=== PATIENT | female | born 1960 | race Asian ===

== ENCOUNTER 2025-03-10 14:51 | Inpatient (IN) | payer SELFPAY ==
[~2025-03-10] VITALS: Ht 157.5 cm; Wt 47.9 kg
[2025-03-10 15:32] LABS: Urine Bacteria None Seen /hpf (None Seen)
--- NOTE | 2025-03-10 15:34 | ED.PDOC ---
GI ASSESSMENT HPI Comments 64 y/o F, with no prior medical history presents to the ED for CC of abdominal pain. Patient states, she has been experiencing diffuse abdominal pain with associated diarrhea x3days. Patient reports, pain to be severe waking her up multiple times during the night. Patient denies nausea, vomiting, fever, chills, dysuria, or melena. No other symptoms or modifying factors present at this time. 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 Family History Family History: Family hx of DM, Family hx of Cancer Social History Smoker: Non-Smoker Alcohol: Denies ETOH Use Drugs: Denies Drug Use Lives In: Home Constitutional: denies: chills, diaphoresis, fatigue, fever, malaise, sweats, weakness, others EENTM: denies: blurred vision, double vision, ear bleeding, ear discharge, ear drainage, ear pain, ear ringing, eye pain, eye redness, hearing loss, mouth pain, mouth swelling, nasal discharge, nose bleeding, nose congestion, nose pain, photophobia, tearing, throat pain, throat swelling, voice changes, others Respiratory: denies: cough, hemoptysis, orthopnea, SOB at rest, shortness of breath, SOB with excertion, stridor, wheezing, others Cardiovascular: denies: chest pain, dizzy spells, diaphoresis, Dyspnea on exertion, edema, irregular heart beat, left arm pain, lightheadedness, palpitations, PND, syncope, others Gastrointestinal: reports: abdominal pain, diarrhea; denies: abdomen distended, blood streaked bowels, constipated, dysphagia, difficulty swallowing, hematemesis, melena, nausea, poor appetite, poor fluid intake, rectal bleeding, rectal pain, vomiting, others Genitourinary: denies: abnormal vagina bleeding, burning, dyspareunia, dysuria, flank pain, frequency, hematuria, incontinence, pain, , vagina discharge, urgency, others Neurological: denies: dizziness, fainting, headache, left sided numbness, left sided weakness, numbness, paresthesia, pre-existing deficit, right sided numbness, right sided weakness, seizure, speech problems, tingling, tremors, weakness, others Musculoskeletal: denies: back pain, gout, joint pain, joint swelling, muscle pain, muscle stiffness, neck pain, others Integumetry: denies: bruises, change in color, change in hair/nails, dryness, laceration, lesions, lumps, rash, wounds, others Allergic/Immunocompromised: denies: Difficulty Healing, Frequent Infections, Hives, Itching, others Hematologic/Lymphatic: denies: anemia, blood clots, easy bleeding, easy bruising, swollen glands, others Endocrine: denies: excessive hunger, excessive sweating, excessive thirst, excessive urination, flushing, intolerance to cold, intolerance to heat, unexplained weight gain, unexplained weight loss, others Psychiatric: denies: anxiety, bipolar disorder, depression, hopeless, panic disorder, schizophrenia, sleepless, suicidal, others All Other Systems: Reviewed and Negative Physical Exam General Appearance: Moderate Distress HEENT: Normal ENT Inspection, Pharynx Normal, TMs Normal Neck: Full Range of Motion, Non-Tender, Normal, Normal Inspection Respiratory: Chest Non-Tender, Lungs Clear, No Accessory Muscle Use, No Respiratory Distress, Normal Breath Sounds Cardiovascular: No Edema, No JVD, No Murmur, No Gallop, Normal Peripheral Pulses, Regular Rate/Rhythm Breast Exam: Deferred Gastrointestinal: No Organomegaly, Non Tender, No Pulsatile Mass, Normal Bowel Sounds, Soft Genitalia: Deferred Pelvic: Deferred Rectal: Deferred Extremities: No calf tenderness, Normal capillary refill, Normal inspection, Normal range of motion, Non-tender, No pedal edema Musculoskeletal : Apperance: Normal Neurologic: Alert, 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 Was a procedure done?: No GI differential Dx Differential Diagnosis: Gastritis/PUD, Gastroenteritis, Electrolyte Imbalance, Food Poisoning, Bacterial, Viral X-Ray, Labs, Meds, VS Vital Signs Date Time Temp Pulse Resp B/P (MAP) Pulse Ox O2 Delivery O2 Flow Rate FiO2 03/10/25 15:15 98.1 95 18 149/96 (113) 95 98.1 Lab Test 03/10/25 15:34 03/10/25 15:10 Range/Units White Blood Count 5.7 4.4-10.8 10^3/uL Red Blood Count 4.89 4.0-5.20 10^6/uL Hemoglobin 14.7 12.2-16.2 g/dL Hematocrit 42.5 36.0-46.0 % Mean Corpuscular Volume 87.0 80.0-100.0 fL Mean Corpuscular Hemoglobin 30.0 28.0-32.0 pg Mean Corpuscular Hemoglobin Concent 34.5 32.0-36.0 g/dL Red Cell Distribution Width 12.5 11.8-14.3 % Platelet Count 228 140-450 10^3/uL Mean Platelet Volume 6.8 L 6.9-10.8 fL Neutrophils (%) (Auto) 58.4 37.0-80.0 % Lymphocytes (%) (Auto) 26.1 10.0-50.0 % Monocytes (%) (Auto) 11.6 0.0-12.0 % Eosinophils (%) (Auto) 3.3 0.0-7.0 % Basophils (%) (Auto) 0.6 0.0-2.0 % Neutrophils # (Auto) 3.4 1.6-8.6 10 ^3/uL Lymphocytes # (Auto) 1.5 0.4-5.4 10 ^3/uL Monocytes # (Auto) 0.7 0-1.3 10 ^3/uL Eosinophils # (Auto) 0.2 0-0.8 10 ^3/uL Basophils # (Auto) 0 0-0.2 10 ^3/uL Nucleated Red Blood Cells 0.1 % Sodium Level 140 136-145 mmol/L Potassium Level 3.2 L 3.5-5.1 mmol/L Chloride Level 105 98-107 mmol/L Carbon Dioxide Level 23 20-31 mmol/L Anion Gap 12 5-15 Blood Urea Nitrogen 6 L 9-23 mg/dL Creatinine 0.80 0.550-1.02 mg/dL Glomerular Filtration Rate Calc 83 >90 mL/min BUN/Creatinine Ratio 7.5 L 10.0-20.0 Serum Glucose 135 H 74-106 mg/dL Calcium Level 8.8 8.7-10.4 mg/dL Total Bilirubin 0.4 0.2-1.0 mg/dL Aspartate Amino Transferase (AST) 45 H <34 U/L Alanine Aminotransferase (ALT) 30 7-40 U/L Alkaline Phosphatase 183 H 46-116 U/L Total Protein 7.8 5.7-8.2 g/dL Albumin 4.3 3.2-4.8 g/dL Lipase 31 12-53 U/L Urine Color Colorless Yellow Urine Clarity Clear Clear Urine pH 6.0 5.0-9.0 Urine Specific [place] 1.002 1.001-1.035 Urine Protein Negative Negative Urine Ketones Negative Negative Urine Blood Negative Negative /uL Urine Nitrite Negative Negative Urine Bilirubin Negative Negative Urine Urobilinogen Normal Negative mg/dL Urine Leukocyte Esterase Negative Negative /uL Urine RBC None seen 0 - 4 /hpf Urine Microscopic WBC < 1 0-5 /HPF Urine Squamous Epithelial Cells Few <5 /hpf Urine Bacteria None seen None Seen /hpf Urine Glucose Normal Normal mg/dL CT ABD PEL: IMPRESSION: 1. Tubular fatty stranding adjacent to the sigmoid colon suggestive of epiploic appendagitis. Mild diverticulitis could have a similar appearance. Trace free fluid in the pelvis. Clinical correlation and continued follow-up is r ecommended. 2. Diffuse hepatic steatosis. Sigmoid diverticulosis. Shotty retroperitoneal lymphadenopathy. The patient is started on Flagyl 500 mg IV piggyback Most likely the diagnosis is acute diverticulitis Images Reviewed?: Images reviewed and evaluated by me Time of 1ST Reevaluation: 15:50 Reevaluation 1ST: Unchanged Patient Education/Counseling: Diagnosis, Treatment, Prognosis Family Education/Counseling: No Family Present SEPSIS Sepsis Screen Date sepsis recognized/suspect: Mar 10, 2025 Time Sepsis recognized/suspect: 1516 Recent Procedure: No On Antibiotic Therapy: No Respiratory Rate >20: No Heart Rate >90: Yes Temp<36 C (96.8 F) or >38.3 C: No SBP <90 or MAP <65 mmHG: No New Acute Mental Status Change: No Is the patient on CPAP, BIPAP,: No Physician Orders Ct Ab Pel Wo Con-No Oral Or Iv (03/10/25 15:23) Heplock Iv (03/10/25 ) Sodium Chloride 0.9% (03/10/25 16:45) Metronidazole 500mg/100ml (Flagyl 500mg/ (03/10/25 16:45) Vital Signs Date Time Temp Pulse Resp B/P (MAP) Pulse Ox O2 Delivery O2 Flow Rate FiO2 03/10/25 15:15 98.1 95 18 149/96 (113) 95 98.1 Laboratory Tests Test 03/10/25 15:34 White Blood Count 5.7 10^3/uL (4.4-10.8) Departure 1 Departure Time of Disposition: 17:15 Impression: Primary Impression: Intractable abdominal pain Additional Impression: Acute diverticulitis Disposition: ADMITTED INPATIENT Admit to: Med Surg Condition: Fair Critical Care Note Critical Care Time?: No Stability Stability form required: No Heart Score Heart Score: Heart Score Response (Comments) Value History N/A 0 EKG N/A 0 Age N/A 0 Risk Factors N/A 0 Troponin N/A 0 Total 0 I personally scribed for JACEK BUI MD ([email or web address]) on 03/10/25 at 15:34. Electronically submitted by Grisel Swan ([email or web address]). I personally scribed for JACEK BUI MD ([email or web address]) on 03/10/25 at 15:47. Electronically submitted by Grisel Swan ([email or web address]). I personally scribed for JACEK BUI MD ([email or web address]) on 03/10/25 at 16:37. Electronically submitted by Grisel Swan ([employer]). JACEK BUI MD Mar 10, 2025 15:34
[2025-03-10 15:42] LABS: Basophils # (auto) 0 10 ^3/uL (0-0.2); Basophils % (auto) 0.6 % (0.0-2.0); Eosinophils # (auto) 0.2 10 ^3/uL (0-0.8); Eosinophils % (auto) 3.3 % (0.0-7.0); Hematocrit 42.5 % (36.0-46.0); Hemoglobin 14.7 g/dL (12.2-16.2); Lymphocytes # (auto) 1.5 10 ^3/uL (0.4-5.4); Lymphocytes % (auto) 26.1 % (10.0-50.0); Mean Corpuscular Hgb Conc. 34.5 g/dL (32.0-36.0); Monocytes # (auto) 0.7 10 ^3/uL (0-1.3); Monocytes % (auto) 11.6 % (0.0-12.0); Neutrophils # (auto) 3.4 10 ^3/uL (1.6-8.6); Neutrophils % (auto) 58.4 % (37.0-80.0); Nucleated Red Blood Cells % 0.1 %; Platelet Count (auto) 228 10^3/uL (140-450); Red Blood Cells 4.89 10^6/uL (4.0-5.20); Red Cell Distribution Width 12.5 % (11.8-14.3); White Blood Cell 5.7 10^3/uL (4.4-10.8)
[2025-03-10 15:49] LABS: Urine Blood Negative /uL (Negative); Urine Clarity Clear (Clear); Urine Color Colorless (Yellow); Urine Protein, UAD Negative (Negative); Urine Specific Gravity 1.002 (1.001-1.035); Urine Squamous Epithelial Cell FEW /hpf (<5); Urine Urobilinogen Normal (Negative)
[2025-03-10 15:51] LABS: Urine WBC < 1 /HPF (0-5)
[2025-03-10 15:58] LABS: Alanine Aminotransferase 30 U/L (7-40); Anion Gap 12 (5-15); Calcium 8.8 mg/dL (8.7-10.4); Carbon Dioxide 23 mmol/L (20-31); Chloride 105 mmol/L (98-107); Lipase 31 U/L (12-53); Sodium 140 mmol/L (136-145); Total Protein 7.8 g/dL (5.7-8.2)
[2025-03-10 15:59] LABS: Albumin 4.3 g/dL (3.2-4.8); Alkaline Phosphatase 183 U/L (46-116); Aspartate Aminotransferase 45 U/L (<34); BUN/Creatinine Ratio 7.5 (10.0-20.0); Bilirubin, Total 0.4 mg/dL (0.2-1.0); Blood Urea Nitrogen 6 mg/dL (9-23); Glucose 135 mg/dL (74-106); Potassium 3.2 mmol/L (3.5-5.1)
--- NOTE | 2025-03-10 16:31 | DVH ---
Exam: CT CT AB PEL WO CON-NO ORAL OR IV History: pain Comparison Study: None Technique: Multidetector spiral CT of the abdomen and pelvis was performed from lung bases to pubic symphysis. Imaging was performed without IV contrast. Axial, coronal and sagittal multiplanar reform ats were obtained from the axial data set by the technologist. Radiation dose : Abdomen/Pelvis: CTDIvol 5.07 mGy, DLP 257.18 mGy*cm. Findings: Evaluation of solid organs is limited due to lack of intravenous contrast use. Lung Bases: No acute or significant lung base finding. Normal heart size. No pleural or pericardial effusion. Liver: Diffuse hepatic steatosis. Gallbladder and biliary Tree: Unremarkable Spleen: Unremarkable Pancreas: The pancreas is grossly normal in appearance. Adrenal Glands: Unremarkable Kidneys: Kidneys are grossly normal without calculi or hydronephrosis. Bladder: Grossly unremarkable for degree of distention. Bowel: The stomach is grossly normal in appearance. Small bowel and colon are normal in caliber and d istribution. Normal appendix is visualized in the right lower quadrant without findings of appendicit is. Sigmoid diverticulosis. Ascites: Small amount of free fluid in the pelvis. Lymphadenopathy: Shotty retroperitoneal lymphadenopathy. Abdominal wall and Mesentery: Tubular fatty stranding adjacent to the sigmoid colon. Vasculature: The visualized abdominal aorta is normal in size and caliber. Evaluation of abdominal a nd pelvic vessels is limited due to lack of intravenous contrast. Pelvic Organs: Unremarkable Musculoskeletal: No aggressive focal bony lesions, acute fractures or dislocation. IMPRESSION: 1. Tubular fatty stranding adjacent to the sigmoid colon suggestive of epiploic appendagitis. Mild d iverticulitis could have a similar appearance. Trace free fluid in the pelvis. Clinical correlation a nd continued follow-up is recommended. 2. Diffuse hepatic steatosis. Sigmoid diverticulosis. Shotty retroperitoneal lymphadenopathy. Radiation optimization: All CT scans at this facility use at least one of these dose optimization jessei hniques: Automated exposure control mA and/or kV adjustment per patient size (includes targeted exams where dose is matched to clinical indication) or iterative reconstruction. HS:Y
[2025-03-10] MEDS ORDERED: metroNIDAZOLE 500MG/100ML 100 ML IV ONE (16:45)
--- NOTE | 2025-03-10 18:08 | DVHHP2 ---
Admitting Diagnosis: Abdominal pain History of Present Illness 64 y/o F, with no prior medical history presents to the ED for CC of abdominal pain. Patient states, she has been experiencing diffuse abdominal pain with associated diarrhea x3days. Patient reports, pain to be severe waking her up multiple times during the night. Patient denies nausea, vomiting, fever, chills, dysuria, or melena. No other symptoms or modifying factors present at this time. 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 Mild distress HEENT-atraumatic, normocephalic Heart-regular rate and rhythm Lungs clear to auscultate bilaterally Abdomen soft, moderate tender, nondistended , hyperactive bowel sounds Musculoskeletal-no edema cyanosis Neuro-AO x3, no focal deficits Results Labs Test 03/10/25 15:34 03/10/25 15:10 Range/Units White Blood Count 5.7 4.4-10.8 10^3/uL Red Blood Count 4.89 4.0-5.20 10^6/uL Hemoglobin 14.7 12.2-16.2 g/dL Hematocrit 42.5 36.0-46.0 % Mean Corpuscular Volume 87.0 80.0-100.0 fL Mean Corpuscular Hemoglobin 30.0 28.0-32.0 pg Mean Corpuscular Hemoglobin Concent 34.5 32.0-36.0 g/dL Red Cell Distribution Width 12.5 11.8-14.3 % Platelet Count 228 140-450 10^3/uL Mean Platelet Volume 6.8 L 6.9-10.8 fL Neutrophils (%) (Auto) 58.4 37.0-80.0 % Lymphocytes (%) (Auto) 26.1 10.0-50.0 % Monocytes (%) (Auto) 11.6 0.0-12.0 % Eosinophils (%) (Auto) 3.3 0.0-7.0 % Basophils (%) (Auto) 0.6 0.0-2.0 % Neutrophils # (Auto) 3.4 1.6-8.6 10 ^3/uL Lymphocytes # (Auto) 1.5 0.4-5.4 10 ^3/uL Monocytes # (Auto) 0.7 0-1.3 10 ^3/uL Eosinophils # (Auto) 0.2 0-0.8 10 ^3/uL Basophils # (Auto) 0 0-0.2 10 ^3/uL Nucleated Red Blood Cells 0.1 % Sodium Level 140 136-145 mmol/L Potassium Level 3.2 L 3.5-5.1 mmol/L Chloride Level 105 98-107 mmol/L Carbon Dioxide Level 23 20-31 mmol/L Anion Gap 12 5-15 Blood Urea Nitrogen 6 L 9-23 mg/dL Creatinine 0.80 0.550-1.02 mg/dL Glomerular Filtration Rate Calc 83 >90 mL/min BUN/Creatinine Ratio 7.5 L 10.0-20.0 Serum Glucose 135 H 74-106 mg/dL Calcium Level 8.8 8.7-10.4 mg/dL Total Bilirubin 0.4 0.2-1.0 mg/dL Aspartate Amino Transferase (AST) 45 H <34 U/L Alanine Aminotransferase (ALT) 30 7-40 U/L Alkaline Phosphatase 183 H 46-116 U/L Total Protein 7.8 5.7-8.2 g/dL Albumin 4.3 3.2-4.8 g/dL Lipase 31 12-53 U/L Urine Color Colorless Yellow Urine Clarity Clear Clear Urine pH 6.0 5.0-9.0 Urine Specific [place] 1.002 1.001-1.035 Urine Protein Negative Negative Urine Ketones Negative Negative Urine Blood Negative Negative /uL Urine Nitrite Negative Negative Urine Bilirubin Negative Negative Urine Urobilinogen Normal Negative mg/dL Urine Leukocyte Esterase Negative Negative /uL Urine RBC None seen 0 - 4 /hpf Urine Microscopic WBC < 1 0-5 /HPF Urine Squamous Epithelial Cells Few <5 /hpf Urine Bacteria None seen None Seen /hpf Urine Glucose Normal Normal mg/dL Primary Diagnosis Acute diverticulitis Hypokalemia Plan Hypokalemia likely due to diarrhea Start ceftriaxone and Flagyl for diverticulitis Clear liquid diet Antiemetic Pain control Loperamide p.r.n. Monitor BM Full code Lovenox for DVT prophylaxis No GI prophylaxis needed Plan discussed with: Patient Problems List: (1) Acute diverticulitis Status: Acute Date of Service: Mar 10, 2025 Billing Provider: CHARLEE MEIER MD Common Visit Codes: [id number] INP/OBS CARE (MOD) CHARLEE MEIER MD Mar 10, 2025 18:08
[2025-03-10] MEDS: POTASSIUM EFFERVESENT TAB 25 MEQ PO ONE (20:14)
[2025-03-10 20:20] VITALS: PULSE 84; RESP 18; O2SAT 98
[2025-03-10] MEDS: SODIUM CHLORIDE 0.9% 1,000 ML IV ONE (20:34)
[2025-03-10] MEDS: cefTRIAXone 1GM/50ML D5W 50 ML IV SCH (20:39)
[2025-03-10] MEDS: SODIUM CHLOR 0.9% PF (SALINE LOCK) 10ML VIAL/SYR IV SCH (20:43)
[2025-03-10] MEDS ORDERED: AMLO1TAB22 PO (20:56)
[2025-03-10] MEDS ORDERED: PANT1INJ3 PO (20:56)
[2025-03-10 21:00] VITALS: BP 147/79; PULSE 84; RESP 18; TEMP 97.3; O2SAT 98
[2025-03-10] MEDS: ONDANSETRON HCL 4 MG/2 ML VIAL IV PRN (21:15)
[2025-03-10] MEDS: ACETAMINOPHEN 325 MG TAB PO PRN (21:24)
[2025-03-10] MEDS: metroNIDAZOLE 500MG/100ML 100 ML IV SCH (21:25)
[2025-03-10] MEDS: LACTATED RINGER'S 1,000 ML IV SCH (23:32)
[2025-03-11] VITALS (8 sets, daily range): BP systolic 112–137; BP diastolic 71–78; PULSE 52–64; RESP 16–18; TEMP 97.8–99.5; O2SAT 95–98
[2025-03-11 06:34] LABS: Basophils # (auto) 0 10 ^3/uL (0-0.2); Basophils % (auto) 0.9 % (0.0-2.0); Eosinophils # (auto) 0.2 10 ^3/uL (0-0.8); Eosinophils % (auto) 3.9 % (0.0-7.0); Hematocrit 39.7 % (36.0-46.0); Hemoglobin 13.4 g/dL (12.2-16.2); Lymphocytes # (auto) 1.2 10 ^3/uL (0.4-5.4); Lymphocytes % (auto) 26.6 % (10.0-50.0); Mean Corpuscular Hemoglobin 29.5 pg (28.0-32.0); Mean Corpuscular Hgb Conc. 33.6 g/dL (32.0-36.0); Mean Corpuscular Volume 87.8 fL (80.0-100.0); Monocytes # (auto) 0.5 10 ^3/uL (0-1.3); Neutrophils # (auto) 2.5 10 ^3/uL (1.6-8.6); Neutrophils % (auto) 56.6 % (37.0-80.0); Nucleated Red Blood Cells % 0.3 %; Platelet Count (auto) 217 10^3/uL (140-450); Red Blood Cells 4.52 10^6/uL (4.0-5.20); Red Cell Distribution Width 12.5 % (11.8-14.3); White Blood Cell 4.3 10^3/uL (4.4-10.8)
[2025-03-11 06:48] LABS: Alanine Aminotransferase 21 U/L (7-40); Albumin 3.5 g/dL (3.2-4.8); Anion Gap 9 (5-15); BUN/Creatinine Ratio 6.3 (10.0-20.0); Calcium 9.3 mg/dL (8.7-10.4); Carbon Dioxide 27 mmol/L (20-31); Glucose 92 mg/dL (74-106); Total Protein 6.3 g/dL (5.7-8.2)
[2025-03-11 06:49] LABS: Aspartate Aminotransferase 31 U/L (<34); Bilirubin, Total 0.4 mg/dL (0.2-1.0)
[2025-03-11 06:50] LABS: Alkaline Phosphatase 141 U/L (46-116); Blood Urea Nitrogen 5 mg/dL (9-23); Chloride 109 mmol/L (98-107); Sodium 145 mmol/L (136-145)
[2025-03-11] MEDS: ENOXAPARIN SOD 40 MG/0.4 ML SYRINGE SC SCH (08:57)
[2025-03-11] MEDS: LOPERAMIDE HCL 2 MG CAP/TAB PO PRN (10:36)
--- NOTE | 2025-03-11 12:48 | DVHPN2 ---
Reviewed: Care Plan, H&P, Labs, Medications, Previous Orders, Radiology Changes from previous H/P or p: No Changes Objective Vitals Vital Signs Date Time Temp Pulse Resp B/P (MAP) Pulse Ox O2 Delivery O2 Flow Rate FiO2 03/11/25 09:00 98.5 52 16 129/78 (95) 97 98.5 03/11/25 08:03 Room Air* 0 21 Intake/Output Intake and Output 03/11/25 07:00 Intake Total 1350 ml Balance 1350 ml Intake Oral 100 ml IV Total 1250 ml # Voids 3 # Bowel Movements 5 Medications Current Medications Medications Dose Ordered Sig/Briseida Route Start Time Stop Time Status Last Admin Dose Admin Ceftriaxone Sodium 50 ml @ 100 mls/hr DAILY IV 03/10/25 18:15 03/11/25 08:57 100 MLS/HR Metronidazole 100 ml @ 100 mls/hr Q8H IV 03/10/25 18:15 03/11/25 10:37 100 MLS/HR Sodium Chloride 10 ml Q8HR IV 03/10/25 22:00 03/11/25 05:57 10 ML Acetaminophen 650 mg Q6HP PRN PO 03/10/25 18:15 03/10/25 21:24 650 MG Acetaminophen/ Hydrocodone Bitart 1 tab Q4HP PRN PO 03/10/25 18:15 Ondansetron HCl 4 mg Q4HP PRN IV 03/10/25 18:15 03/10/25 21:15 4 MG Enoxaparin Sodium 40 mg DAILY SC 03/11/25 10:00 03/11/25 08:57 40 MG Lactated Ringer's 1,000 ml @ 75 mls/hr [id number] IV 03/10/25 18:30 03/10/25 23:32 75 MLS/HR Loperamide HCl 2 mg PRN PRN PO 03/10/25 22:45 03/11/25 10:36 2 MG Laboratory Results Laboratory Tests 03/11/25 05:25 Chemistry Test 03/10/25 15:34 03/11/25 05:25 Albumin 4.3 g/dL (3.2-4.8) 3.5 g/dL (3.2-4.8) Calcium Level 8.8 mg/dL (8.7-10.4) 9.3 mg/dL (8.7-10.4) Total Protein 7.8 g/dL (5.7-8.2) 6.3 g/dL (5.7-8.2) Lipid panel Test 03/10/25 15:34 Lipase 31 U/L (12-53) LFT Test 03/10/25 15:34 03/11/25 05:25 Alanine Aminotransferase (ALT) 30 U/L (7-40) 21 U/L (7-40) Alkaline Phosphatase 183 U/L (46-116) H 141 U/L (46-116) H Aspartate Amino Transferase (AST) 45 U/L (<34) H 31 U/L (<34) Total Bilirubin 0.4 mg/dL (0.2-1.0) 0.4 mg/dL (0.2-1.0) Urinalysis Test 03/10/25 15:10 Urine Color Colorless (Yellow) Urine Clarity Clear (Clear) Urine pH 6.0 (5.0-9.0) Urine Specific [place] 1.002 (1.001-1.035) Urine Protein Negative (Negative) Urine Ketones Negative (Negative) Urine Blood Negative /uL (Negative) Urine Nitrite Negative (Negative) Urine Bilirubin Negative (Negative) Urine Urobilinogen Normal mg/dL (Negative) Urine Leukocyte Esterase Negative /uL (Negative) Urine RBC None seen /hpf (0 - 4) Urine Microscopic WBC < 1 /HPF (0-5) Urine Squamous Epithelial Cells Few /hpf (<5) Urine Bacteria None seen /hpf (None Seen) Urine Glucose Normal mg/dL (Normal) Microbiology Microbiology Date/Time Source Procedure Growth Status 03/10/25 21:45 Stool Clostridium difficile Toxin Assay - Final Complete Labs and/or images reviewed: Labs reviewed by me, Image(s) reviewed by me Assessment/Plan Assessment/Plan Sepsis secondary to acute diverticulitis Left lower quadrant pain Acute diverticulitis: Rocephin Flagyl Acute dehydration: IV fluids Time spent 40 minutes Plan discussed with: Patient Date of Service: Mar 11, 2025 Billing Provider: YOGI KESSLER MD Common Visit Codes: [id number] INP/OBS CARE(HIGH) YOGI KESSLER MD Mar 11, 2025 12:48
[2025-03-11] MEDS: HYDROcodone-ACET 5/325MG TAB PO PRN (18:39)
--- NOTE | 2025-03-11 22:41 | DVHINCON2 ---
Date of service: Mar 11, 2025 Referring Physician Felton Fishman Reason for Consultation Acute diverticulitis History of Present Illness 64 y/o F, with no prior medical history presents to the ED for CC of abdominal pain. Patient states, she has been experiencing diffuse abdominal pain with associated diarrhea x3days. Patient reports, pain to be severe waking her up multiple times during the night. Patient denies nausea, vomiting, fever, chills, dysuria, or melena. No other symptoms or modifying factors present at this time. Past Medical History Gerd Past Surgical History Negative Family History: Diabetes mellitus G8 SISTER FH: thyroid cancer G8 FATHER Hypertension G8 MOTHER G8 BROTHER Allergies: Coded Allergies: NO KNOWN ALLERGIES (Unverified , 03/10/25) Home Meds Reported Medications Pantoprazole Sodium (PANTOPRAZOLE SODIUM) 40 Mg Inj, 40 MG PO DAILY, INJ 03/10/25 Amlodipine Besylate (Amlodipine Besylate) 5 Mg Tab, 5 MG PO DAILY for 30 Days, MG 03/10/25 Current Medications Current Medications Medications (Trade) Dose Ordered Sig/Briseida Route PRN Reason Start Time Stop Time Status Last Admin Enoxaparin Sodium (Lovenox) 40 mg DAILY SC 03/11/25 10:00 03/11/25 08:57 Loperamide HCl (Imodium Capsule) 2 mg PRN PRN PO FOR DIARRHEA 03/10/25 22:45 03/11/25 10:36 Vital Signs Vital Signs Date Time Temp Pulse Resp B/P (MAP) Pulse Ox O2 Delivery O2 Flow Rate FiO2 03/11/25 21:00 98.0 64 16 116/71 (86) 96 98.0 03/11/25 08:03 Room Air* 0 21 Physical Exam 64 years old woman, well nourished well developed. No distress HEENT-atraumatic, normocephalic Heart-regular rate and rhythm Lungs clear to auscultate bilaterally Abdomen soft, moderate tender, nondistended , hyperactive bowel sounds Musculoskeletal-no edema cyanosis Neuro-AO x3, no focal deficits Labs/Diagnostic Data Labs Test 03/11/25 05:25 03/10/25 15:34 03/10/25 15:10 Range/Units White Blood Count 4.3 L 4.4-10.8 10^3/uL Red Blood Count 4.52 4.0-5.20 10^6/uL Hemoglobin 13.4 12.2-16.2 g/dL Hematocrit 39.7 36.0-46.0 % Mean Corpuscular Volume 87.8 80.0-100.0 fL Mean Corpuscular Hemoglobin 29.5 28.0-32.0 pg Mean Corpuscular Hemoglobin Concent 33.6 32.0-36.0 g/dL Red Cell Distribution Width 12.5 11.8-14.3 % Platelet Count 217 140-450 10^3/uL Mean Platelet Volume 7.1 6.9-10.8 fL Neutrophils (%) (Auto) 56.6 37.0-80.0 % Lymphocytes (%) (Auto) 26.6 10.0-50.0 % Monocytes (%) (Auto) 12.0 0.0-12.0 % Eosinophils (%) (Auto) 3.9 0.0-7.0 % Basophils (%) (Auto) 0.9 0.0-2.0 % Neutrophils # (Auto) 2.5 1.6-8.6 10 ^3/uL Lymphocytes # (Auto) 1.2 0.4-5.4 10 ^3/uL Monocytes # (Auto) 0.5 0-1.3 10 ^3/uL Eosinophils # (Auto) 0.2 0-0.8 10 ^3/uL Basophils # (Auto) 0 0-0.2 10 ^3/uL Nucleated Red Blood Cells 0.3 % Sodium Level 145 # 136-145 mmol/L Potassium Level 4.0 3.5-5.1 mmol/L Chloride Level 109 H 98-107 mmol/L Carbon Dioxide Level 27 20-31 mmol/L Anion Gap 9 5-15 Blood Urea Nitrogen 5 L 9-23 mg/dL Creatinine 0.79 0.550-1.02 mg/dL Glomerular Filtration Rate Calc 84 >90 mL/min BUN/Creatinine Ratio 6.3 L 10.0-20.0 Serum Glucose 92 74-106 mg/dL Calcium Level 9.3 8.7-10.4 mg/dL Total Bilirubin 0.4 0.2-1.0 mg/dL Aspartate Amino Transferase (AST) 31 <34 U/L Alanine Aminotransferase (ALT) 21 7-40 U/L Alkaline Phosphatase 141 H 46-116 U/L Total Protein 6.3 5.7-8.2 g/dL Albumin 3.5 3.2-4.8 g/dL Lipase 31 12-53 U/L Urine Color Colorless Yellow Urine Clarity Clear Clear Urine pH 6.0 5.0-9.0 Urine Specific [place] 1.002 1.001-1.035 Urine Protein Negative Negative Urine Ketones Negative Negative Urine Blood Negative Negative /uL Urine Nitrite Negative Negative Urine Bilirubin Negative Negative Urine Urobilinogen Normal Negative mg/dL Urine Leukocyte Esterase Negative Negative /uL Urine RBC None seen 0 - 4 /hpf Urine Microscopic WBC < 1 0-5 /HPF Urine Squamous Epithelial Cells Few <5 /hpf Urine Bacteria None seen None Seen /hpf Urine Glucose Normal Normal mg/dL Microbiology Date/Time Source Procedure Growth Status 03/10/25 21:45 Stool Clostridium difficile Toxin Assay - Final Complete CT ABD PELVIS IMPRESSION: 1. Tubular fatty stranding adjacent to the sigmoid colon suggestive of epiploic appendagitis. Mild diverticulitis could have a similar appearance. Trace free fluid in the pelvis. Clinical correlation and continued follow-up is recommended. 2. Diffuse hepatic steatosis. Sigmoid diverticulosis. Shotty retroperitoneal lymphadenopathy. Problems(with codes): (1) Epiploic appendagitis (2) Acute diverticulitis (3) Intractable abdominal pain Plan/Recommendation PLAN Continue IV antibiotics Clear liquid diet Pain control When stabilized discharge planning on oral antibiotics Outpatient follow up with GI Services for elective colonoscopy Plan discussed with: Other (Nurse) ALISA ALLRED MD Mar 11, 2025 22:41
[2025-03-12 01:00] VITALS: BP 126/90; PULSE 57; RESP 17; TEMP 97.5; O2SAT 94
[2025-03-12 05:00] VITALS: BP 113/65; PULSE 60; RESP 17; TEMP 98.4; O2SAT 94
[2025-03-12 06:00] LABS: Basophils # (auto) 0 10 ^3/uL (0-0.2); Basophils % (auto) 0.8 % (0.0-2.0); Eosinophils # (auto) 0.2 10 ^3/uL (0-0.8); Eosinophils % (auto) 4.5 % (0.0-7.0); Hematocrit 39.9 % (36.0-46.0); Hemoglobin 13.8 g/dL (12.2-16.2); Lymphocytes # (auto) 0.8 10 ^3/uL (0.4-5.4); Lymphocytes % (auto) 21.4 % (10.0-50.0); Mean Corpuscular Hemoglobin 30.1 pg (28.0-32.0); Mean Corpuscular Hgb Conc. 34.5 g/dL (32.0-36.0); Mean Corpuscular Volume 87.1 fL (80.0-100.0); Monocytes # (auto) 0.4 10 ^3/uL (0-1.3); Monocytes % (auto) 10.7 % (0.0-12.0); Neutrophils # (auto) 2.4 10 ^3/uL (1.6-8.6); Neutrophils % (auto) 62.6 % (37.0-80.0); Nucleated Red Blood Cells % 0.3 %; Platelet Count (auto) 203 10^3/uL (140-450); Red Blood Cells 4.58 10^6/uL (4.0-5.20); Red Cell Distribution Width 12.6 % (11.8-14.3); White Blood Cell 3.8 10^3/uL (4.4-10.8)
[2025-03-12 06:23] LABS: Alanine Aminotransferase 23 U/L (7-40); Anion Gap 11 (5-15); Calcium 8.9 mg/dL (8.7-10.4); Carbon Dioxide 26 mmol/L (20-31); Chloride 105 mmol/L (98-107); Glucose 91 mg/dL (74-106); Sodium 142 mmol/L (136-145); Total Protein 6.6 g/dL (5.7-8.2)
[2025-03-12 06:24] LABS: Albumin 3.8 g/dL (3.2-4.8); Aspartate Aminotransferase 28 U/L (<34); Bilirubin, Total 0.5 mg/dL (0.2-1.0)
[2025-03-12 06:25] LABS: BUN/Creatinine Ratio 6.4 (10.0-20.0); Blood Urea Nitrogen < 5 mg/dL (9-23); Potassium 3.5 mmol/L (3.5-5.1)
[2025-03-12 06:26] LABS: Alkaline Phosphatase 151 U/L (46-116)
[2025-03-12 08:00] VITALS: PULSE 65; RESP 16; O2SAT 96
--- NOTE | 2025-03-12 08:16 | DVHPN2 ---
Reviewed: Care Plan, H&P, Labs, Medications, Previous Orders, Radiology Changes from previous H/P or p: No Changes Objective Vitals Vital Signs Date Time Temp Pulse Resp B/P (MAP) Pulse Ox O2 Delivery O2 Flow Rate FiO2 03/12/25 05:00 98.4 60 17 113/65 (81) 94 98.4 03/11/25 20:00 Room Air* 0 21 Intake/Output Intake and Output 03/12/25 07:00 Intake Total 1655 ml Balance 1655 ml Intake Oral 1505 ml IV Total 150 ml # Voids 7 # Bowel Movements 2 Medications Current Medications Medications Dose Ordered Sig/Briseida Route Start Time Stop Time Status Last Admin Dose Admin Ceftriaxone Sodium 50 ml @ 100 mls/hr DAILY IV 03/10/25 18:15 03/11/25 08:57 100 MLS/HR Metronidazole 100 ml @ 100 mls/hr Q8H IV 03/10/25 18:15 03/12/25 03:18 100 MLS/HR Sodium Chloride 10 ml Q8HR IV 03/10/25 22:00 03/12/25 05:52 10 ML Acetaminophen 650 mg Q6HP PRN PO 03/10/25 18:15 03/10/25 21:24 650 MG Acetaminophen/ Hydrocodone Bitart 1 tab Q4HP PRN PO 03/10/25 18:15 03/11/25 18:39 1 TAB Ondansetron HCl 4 mg Q4HP PRN IV 03/10/25 18:15 03/10/25 21:15 4 MG Enoxaparin Sodium 40 mg DAILY SC 03/11/25 10:00 03/11/25 08:57 40 MG Lactated Ringer's 1,000 ml @ 75 mls/hr [id number] IV 03/10/25 18:30 03/11/25 13:14 75 MLS/HR Loperamide HCl 2 mg PRN PRN PO 03/10/25 22:45 03/11/25 10:36 2 MG Laboratory Results Laboratory Tests 03/12/25 05:22 Chemistry Test 03/12/25 05:22 Albumin 3.8 g/dL (3.2-4.8) Calcium Level 8.9 mg/dL (8.7-10.4) Total Protein 6.6 g/dL (5.7-8.2) LFT Test 03/12/25 05:22 Alanine Aminotransferase (ALT) 23 U/L (7-40) Alkaline Phosphatase 151 U/L (46-116) H Aspartate Amino Transferase (AST) 28 U/L (<34) Total Bilirubin 0.5 mg/dL (0.2-1.0) Urinalysis Test 03/10/25 15:10 Urine Color Colorless (Yellow) Urine Clarity Clear (Clear) Urine pH 6.0 (5.0-9.0) Urine Specific [place] 1.002 (1.001-1.035) Urine Protein Negative (Negative) Urine Ketones Negative (Negative) Urine Blood Negative /uL (Negative) Urine Nitrite Negative (Negative) Urine Bilirubin Negative (Negative) Urine Urobilinogen Normal mg/dL (Negative) Urine Leukocyte Esterase Negative /uL (Negative) Urine RBC None seen /hpf (0 - 4) Urine Microscopic WBC < 1 /HPF (0-5) Urine Squamous Epithelial Cells Few /hpf (<5) Urine Bacteria None seen /hpf (None Seen) Urine Glucose Normal mg/dL (Normal) Microbiology Microbiology Date/Time Source Procedure Growth Status 03/10/25 21:45 Stool Clostridium difficile Toxin Assay - Final Complete Labs and/or images reviewed: Labs reviewed by me, Image(s) reviewed by me Assessment/Plan Assessment/Plan Sepsis secondary to acute diverticulitis Epiploic appendagitis Left lower quadrant pain Acute diverticulitis: Rocephin Flagyl, GI consult by Dr. Radha Preciado appreciated Acute dehydration: IV fluids C diff negative, stool cultures negative Time spent 40 minutes Patient feels better and wants to go home RN Renetta present at bedside Plan discussed with: Patient My Orders Orders - YOGI KESSLER MD Procedure Category Date Status Time *Consult Dr. Medina ZUNIGA 03/11/25 Transmitted Ozzy 13:18 Date of Service: Mar 12, 2025 Billing Provider: YOGI KESSLER MD Common Visit Codes: [id number] INP/OBS CARE(HIGH) YOGI KESSLER MD Mar 12, 2025 08:16
[2025-03-12] MEDS ORDERED: METR-344 PO (08:17)
[2025-03-12] MEDS ORDERED: LEVO500T91 PO (08:17)
[2025-03-12] MEDS ORDERED: HYDR-4902 PO (08:18)
--- NOTE | 2025-03-12 08:21 | DVHDS2 ---
Discharge Summary Date of Admission Mar 10, 2025 at 18:03 Date of Discharge: Mar 12, 2025 Admitting Diagnosis Left lower quadrant pain Wounds: None Labs/Diagnostic Data: Laboratory Results Test 03/12/25 05:22 03/11/25 05:25 03/10/25 15:34 03/10/25 15:10 White Blood Count 3.8 10^3/uL (4.4-10.8) Red Blood Count 4.58 10^6/uL (4.0-5.20) Hemoglobin 13.8 g/dL (12.2-16.2) Hematocrit 39.9 % (36.0-46.0) Mean Corpuscular Volume 87.1 fL (80.0-100.0) Mean Corpuscular Hemoglobin 30.1 pg (28.0-32.0) Mean Corpuscular Hemoglobin Concent 34.5 g/dL (32.0-36.0) Red Cell Distribution Width 12.6 % (11.8-14.3) Platelet Count 203 10^3/uL (140-450) Mean Platelet Volume 6.9 fL (6.9-10.8) Neutrophils (%) (Auto) 62.6 % (37.0-80.0) Lymphocytes (%) (Auto) 21.4 % (10.0-50.0) Monocytes (%) (Auto) 10.7 % (0.0-12.0) Eosinophils (%) (Auto) 4.5 % (0.0-7.0) Basophils (%) (Auto) 0.8 % (0.0-2.0) Neutrophils # (Auto) 2.4 10 ^3/uL (1.6-8.6) Lymphocytes # (Auto) 0.8 10 ^3/uL (0.4-5.4) Monocytes # (Auto) 0.4 10 ^3/uL (0-1.3) Eosinophils # (Auto) 0.2 10 ^3/uL (0-0.8) Basophils # (Auto) 0 10 ^3/uL (0-0.2) Nucleated Red Blood Cells 0.3 % Sodium Level 142 mmol/L (136-145) Potassium Level 3.5 mmol/L (3.5-5.1) Chloride Level 105 mmol/L (98-107) Carbon Dioxide Level 26 mmol/L (20-31) Anion Gap 11 (5-15) Blood Urea Nitrogen < 5 mg/dL (9-23) Creatinine 0.78 mg/dL (0.550-1.02) Glomerular Filtration Rate Calc 85 mL/min (>90) BUN/Creatinine Ratio 6.4 (10.0-20.0) Serum Glucose 91 mg/dL (74-106) Calcium Level 8.9 mg/dL (8.7-10.4) Total Bilirubin 0.5 mg/dL (0.2-1.0) Aspartate Amino Transferase (AST) 28 U/L (<34) Alanine Aminotransferase (ALT) 23 U/L (7-40) Alkaline Phosphatase 151 U/L (46-116) Total Protein 6.6 g/dL (5.7-8.2) Albumin 3.8 g/dL (3.2-4.8) Lipase 31 U/L (12-53) Urine Color Colorless (Yellow) Urine Clarity Clear (Clear) Urine pH 6.0 (5.0-9.0) Urine Specific [place] 1.002 (1.001-1.035) Urine Protein Negative (Negative) Urine Ketones Negative (Negative) Urine Blood Negative /uL (Negative) Urine Nitrite Negative (Negative) Urine Bilirubin Negative (Negative) Urine Urobilinogen Normal mg/dL (Negative) Urine Leukocyte Esterase Negative /uL (Negative) Urine RBC None seen /hpf (0 - 4) Urine Microscopic WBC < 1 /HPF (0-5) Urine Squamous Epithelial Cells Few /hpf (<5) Urine Bacteria None seen /hpf (None Seen) Urine Glucose Normal mg/dL (Normal) Other Laboratory Tests 03/12/25 05:22 Brief Hx & Hospital Course: 64-year-old female with a no previous medical history came in complaining of left lower quadrant pain. Found to have mild diverticulitis treated with Rocephin and Flagyl. She also has a epiploic appendagitis. Stool C diff negative stool cultures negative dehydration improved with the IV fluids patient feels better afebrile stable vital signs and wants to go home. Discharged home on Levaquin Flagyl and [place] she will follow up with the primary Dr. Consults/Reason for consult GI Dr. Radha Preciado Operations or Procedures CT abdomen pelvis without contrast Condition at Discharge: Fair Final Diagnosis/Problems List Sepsis secondary to acute diverticulitis Epiploic appendagitis Left lower quadrant pain Acute diverticulitis: Marlene Strange, GI consult by Dr. Radha Preciado appreciated Acute dehydration: IV fluids C diff negative, stool cultures negative Discharge Disposition: Home Discharge Instruct/Medications Diet: Regular Activity: Light activity Follow Up/Referral: Follow up with your primary Medications: Flagyl Levaquin [place] Transmitted to [facility] (Time taken for discharge summary 35 minutes) Discharge Statement: "Patient was advised to return to the ER or call 911 if any headaches, dizziness, shortness of breath, chest pain, abdominal pain, bleeding, fevers, or worsening of medical condition. Patient was counseled about treatment plan, medications, possible side effects, patientverbalized understanding. All questions were answered to the best of my ability. This discharge took greater then 30 minutes in planning, reviewing documentation, counseling the patient, and discussing with other team members." ASSESSMENT ASSESSMENT Hospital Course Improved Assessment Sepsis secondary to acute diverticulitis Epiploic appendagitis Left lower quadrant pain Acute diverticulitis: Marlene Strange, GI consult by Dr. Radha Preciado appreciated Acute dehydration: IV fluids C diff negative, stool cultures negative Date of Service: Mar 12, 2025 Billing Provider: YOGI KESSLER MD Common Visit Codes: 23796-[id number]/OBS DISCH DAY >30min YOGI KESSLER MD Mar 12, 2025 08:21
[2025-03-12 09:00] VITALS: BP 142/82; PULSE 63; RESP 16; TEMP 98.9; O2SAT 95
[2025-03-12 09:54] VITALS: BP 142/82; PULSE 63; RESP 16; TEMP 37.2; O2SAT 95
[2025-03-12 11:18] LABS: Hepatitis B Surface Antigen Negative (Negative); Hepatitis C Antibody Negative (Negative)
--- NOTE | 2025-03-12 21:43 | DVHPN2 ---
Progress Note - Dictate Date Seen: Mar 12, 2025 (Late entryTime of visit 11:00 a.m.) Medical Necessity Reason Pt with a Central, PICC or Fol: No Subjective No new complaints Patient is feeling better she is tolerating clear liquid diet vital signs Vital Sign Date Time Temp Pulse Resp B/P (MAP) Pulse Ox O2 Delivery O2 Flow Rate FiO2 03/12/25 09:54 37.2 63 16 95 03/12/25 09:00 142/82 (102) 03/12/25 08:00 Room Air* 0 21 Total Intake and Output 03/11/25 03/11/25 03/12/25 15:00 23:00 07:00 Intake Total 750 ml 280 ml 625 ml Balance 750 ml 280 ml 625 ml laboratory and microbiology Laboratory Tests 03/12/25 05:22 Test 03/12/25 05:22 Range/Units Serum Glucose 91 74-106 mg/dL Problems(with codes): (1) Epiploic appendagitis (2) Intractable abdominal pain (3) Acute diverticulitis Prognosis Plan Discharge planning is in progress on oral antibiotics Patient was advised to stay on a liquid diet for another 48 - 72 hours Outpatient follow up with GI Services for elective colonoscopy in a few weeks Plan discussed with: Other (Nurse) ALISA ALLRED MD Mar 12, 2025 21:43
== END 2025-03-12 11:30 | disposition home or self-care (01) | DRG 872 ==
LOC: ER 14:51 → OVERFLOW 18:03 → EAST 20:18
PROVIDERS: ADMIT Family Medicine; ATTEND Family Medicine
DX: A41.9 Sepsis, unspecified organism (principal); K57.32 Diverticulitis of large intestine without perforation or abscess without bleeding; E86.0 Dehydration; E87.6 Hypokalemia; K21.9 Gastro-esophageal reflux disease without esophagitis; K63.89 Other specified diseases of intestine; Z83.3 Family history of diabetes mellitus; Z82.49 Family history of ischemic heart disease and other diseases of the circulatory system; Z80.8 Family history of malignant neoplasm of other organs or systems; Z79.899 Other long term (current) drug therapy
CPT/HCPCS: 36415; 74176; 80053; 81001; 83690; 85025; 86803; 87045; 87340; 87427; 87493; 96365; G0378; J2405; J3490